=== PATIENT | female | born 1945 | race Caucasian/White ===

== ENCOUNTER 2024-07-18 12:00 | Inpatient (IN) | payer MEDICARE, BC ==
[2024-07-18 11:41] VITALS: BMI 31.1
[2024-07-18 13:35] LABS: #Basophils 0.07 10x3/uL (0.0-0.2); %Basophils 0.8 % (0.0-1.0); %Eosinophils 2.5 % (0.0-10.0); %Lymphocytes 26.7 % (21.0-51.0); %Monocytes 6.6 % (0.0-10.0); %Neutrophils 63.1 % (42.0-75.0); Hematocrit 44.7 % (36.0-47.0); Hemoglobin 14.7 g/dL (12.0-16.0); Mean Corpuscular HGB CONC 32.9 g/dL (32.0-36.0); Mean Corpuscular Hemoglobin 31.5 pg (27.0-31.0); Mean Corpuscular Volume 95.9 fL (78.0-98.0); Mean Platelet Volume 10.8 fL (7.4-10.4); Platelet Count 245 10x3/uL (130-400); RBC Distribution Width 13.6 % (11.5-14.5); Red Blood Cell (RBC) Count 4.66 mill/uL (4.20-5.40)
[2024-07-18 13:49] LABS: Anion Gap 15 mmol/L (10-20); BUN (Urea Nitrogen) 24 mg/dL (9.8-20.1); Calc. Creatinine Clearance 0 mL/min (70-130); Calcium 9.6 mg/dL (7.8-10.44); Carbon Dioxide 20 mmol/L (23-31); Chloride 109 mmol/L (98-107); Estimated GFR 48; Glucose 169 mg/dL (83-110); Potassium 4.4 mmol/L (3.5-5.1); Sodium 140 mmol/L (136-145)
[2024-07-21] MEDS ORDERED: Dexamethasone 4 mg/ml Vial ONE (06:15)
[2024-07-21] MEDS ORDERED: EPINEPHrine 1 MG/ML VIAL ONE (06:16)
[2024-07-21] MEDS ORDERED: Albumin 5% 0 ML ONE (06:16)
[2024-07-21] MEDS ORDERED: PHENYLEPHRINE-NS 100 MCG/ML 10 ML SYRINGE ONE ×3 (06:16→09:56)
[2024-07-21] MEDS ORDERED: Bupivacaine PF 0.5% 30 ML VIAL ONE (06:16)
[2024-07-21] MEDS ORDERED: fentaNYL PF 100 MCG/2 ML SYRINGE ONE ×2 (06:36→09:37)
[2024-07-21] MEDS ORDERED: PROPOFOL 20 ML ONE (06:36)
[2024-07-21] MEDS ORDERED: Midazolam HCl 2 mg/2 ml Vial ONE ×2 (06:37→09:37)
[2024-07-21] MEDS ORDERED: Lidocaine 1% PF 5 ML VIAL ONE (06:37)
[2024-07-21] MEDS ORDERED: Ondansetron PF 4 MG/2 ML Vial ONE (06:37)
[2024-07-21] MEDS ORDERED: Rocuronium Bromide 10 MG/ML (10ML VIAL) ONE ×2 (06:37→08:43)
[2024-07-21] MEDS ORDERED: Heparin 10,000 UNITS/1 ML VIAL 30,000 UNITS in Sodium Chloride 0.9% 1,000 ML FS SCH (06:45)
[2024-07-21] MEDS ORDERED: Lidocaine 1% MPF 2 ML VIAL ONE (06:50)
[2024-07-21] MEDS ORDERED: Nitroglycerin 50 MG/250 ML BOT 250 ML ONE (07:18)
[2024-07-21] MEDS ORDERED: Sodium Chloride 0.9% 100 ML ONE (07:21)
[2024-07-21] MEDS ORDERED: CEFAZOLIN 2 GM VIAL ONE (07:21)
[2024-07-21] MEDS ORDERED: Mannitol 12.5 GM/50 ML ONE (07:29)
[2024-07-21] MEDS ORDERED: Vancomycin 1 GM VIAL ONE (07:29)
[2024-07-21] MEDS ORDERED: Aminocaproic Acid 5 GM/20 ML VIAL ONE (07:29)
[2024-07-21] MEDS ORDERED: Magnesium 5 GM/10 ML VIAL ONE (07:29)
[2024-07-21] MEDS ORDERED: Papaverine 60 MG/2 ML VIAL ONE (07:29)
[2024-07-21] MEDS ORDERED: Lidocaine 2% PF 100 mg/5 ml Syringe ONE (07:29)
[2024-07-21] MEDS ORDERED: Calcium Chloride 1 GM/10 ML Abboject SYRINGE ONE (07:29)
[2024-07-21] MEDS ORDERED: Thrombin 5000 UNITS/5 ML VIAL ONE (07:29)
[2024-07-21] MEDS ORDERED: Heparin 5,000 UNITS/ML VIAL ONE (07:29)
[2024-07-21] MEDS ORDERED: Potassium Chloride 60 mEq (30 mL) VIAL ONE (07:29)
[2024-07-21] MEDS ORDERED: Cardioplegic Soln 1,000 ML BAG ONE (07:29)
[2024-07-21] MEDS ORDERED: Heparin 30,000 units/30 ml VIAL ONE (07:29)
[2024-07-21] MEDS ORDERED: Sodium Bicarb 50 mEq/50 ML VIAL ONE (07:29)
[2024-07-21] MEDS ORDERED: Esmolol 100 MG/10 ML VIAL ONE (07:48)
[2024-07-21] MEDS ORDERED: Insulin Regular 300 UNITS/3 ML VIAL ONE (09:46)
[2024-07-21] MEDS ORDERED: Protamine Sulfate 50 MG/5 ML VIAL ONE (09:52)
[2024-07-21] MEDS ORDERED: Norepinephrine 4 MG/4 ML VIAL ONE (10:26)
[2024-07-21] MEDS ORDERED: NOREPINEPHRINE 8 MG/250 ML-D5W 250 ML ONE (10:35)
[2024-07-21 11:31] LABS: Actual Bicarbonate (HCO3a) 17.7 mEq/L (22-28); Base Excess (BEa) -7.5 mEq/L (-2.0 to +3.0); Calcium, Ionized (arterial) 1.23 mmol/L (1.12-1.30); Carboxyhemoglobin (COHb) 1.1 gm% (0.0-3.0); Hematocrit-ABG 36 % (36.0-47.0); Hemoglobin (Hb) 12.4 g/dL (12.0-16.0); O2 Tension (PaO2), arterial 111.7 mmHg (> 70.0); Potassium - ABG Lab 3.83 mmol/L (3.70-5.30); pH, Arterial 7.322 (7.35-7.45)
[2024-07-21 11:32] LABS: Puncture Site ALINE
[2024-07-21] MEDS ORDERED: Bisacodyl 5 MG TAB PO PRN (11:51)
[2024-07-21] MEDS ORDERED: fentaNYL 50 mcg/mL 1 mL Vial SLOW IVP PRN ×2 (11:51)
[2024-07-21] MEDS ORDERED: Ipratropium/Albuterol 3 ML NEB NEB PRN (11:51)
[2024-07-21] MEDS ORDERED: Nitroglycerin 50 MG/250 ML BOT 250 ML IVPB PRN (11:51)
[2024-07-21] MEDS ORDERED: NOREPINEPHRINE 8 MG/250 ML-D5W 250 ML IVPB PRN (11:51)
[2024-07-21] MEDS ORDERED: Mag-Al 1200 mg/1200 mg/30 ML UDCUP PO PRN (11:51)
[2024-07-21] MEDS ORDERED: Bisacodyl 10 MG SUPP PR PRN (11:51)
[2024-07-21] MEDS ORDERED: traMADol HCl 50 MG TAB PO PRN (11:51)
[2024-07-21] MEDS ORDERED: Promethazine HCl 25 MG/ML VIAL IM PRN (11:51)
[2024-07-21] MEDS ORDERED: Morphine 2 MG/ML VIAL SLOW IVP PRN (11:51)
[2024-07-21] MEDS ORDERED: Ondansetron PF 4 MG/2 ML Vial IVP PRN (11:51)
[2024-07-21] MEDS ORDERED: Guaifenesin DM 100-10/5 ML UDCUP PO PRN (11:51)
[2024-07-21 11:57] LABS: #Basophils 0.07 10x3/uL (0.0-0.2); %Basophils 0.3 % (0.0-1.0); %Eosinophils 0.2 % (0.0-10.0); %Lymphocytes 11.7 % (21.0-51.0); %Monocytes 5.9 % (0.0-10.0); %Neutrophils 80.2 % (42.0-75.0); Hematocrit 33.3 % (36.0-47.0); Mean Corpuscular Hemoglobin 32.2 pg (27.0-31.0); Mean Corpuscular Volume 97.4 fL (78.0-98.0); Mean Platelet Volume 12.2 fL (7.4-10.4); Platelet Count 161 10x3/uL (130-400); Red Blood Cell (RBC) Count 3.42 mill/uL (4.20-5.40)
[2024-07-21 12:07] LABS: Anion Gap 15 mmol/L (10-20); BUN (Urea Nitrogen) 25 mg/dL (9.8-20.1); Calc. Creatinine Clearance 71 mL/min (70-130); Calcium 8.8 mg/dL (7.8-10.44); Carbon Dioxide 17 mmol/L (23-31); Chloride 114 mmol/L (98-107); Estimated GFR 67; Glucose 207 mg/dL (83-110); Potassium 5.2 mmol/L (3.5-5.1); Sodium 141 mmol/L (136-145)
[2024-07-21 12:23] LABS: INR-International Normal Ratio 1.4; PTT 35.6 sec (22.9-36.1); Prothrombin Time 16.7 sec (12.0-14.7)
[2024-07-21] MEDS ORDERED: Dextrose 5% in Water 1,000 ML IV PRN (12:30)
[2024-07-21] MEDS ORDERED: Glucagon 1 MG/ML KIT SC PRN (12:30)
[2024-07-21] MEDS ORDERED: Dextrose 50% Abboject 50 ML SYRINGE SLOW IVP PRN (12:30)
[2024-07-21] MEDS: Albumin 5% 12.5 GM (250 mL) BOT IVPB PRN ×2 (12:31→22:36)
[2024-07-21] MEDS: Insulin Regular, Human 100 UNIT/ML 10 ML VIAL SC PRN (12:35)
[2024-07-21] MEDS: Ketorolac Tromethamine 30 MG (1 mL) VIAL IVP SCH (12:35)
[2024-07-21] MEDS: Magnesium 2 GM/50 ML(in water) 2 GM in Premix 1 BAG IVPB SCH (12:36)
[2024-07-21] MEDS: Post-Op Insulin Drip Protocol IVPB ONE (12:36)
[2024-07-21] MEDS: Albumin 5% 500 ML ONE (12:36)
[2024-07-21] MEDS: D5 1/2 NS w/20 mEq KCL 1,000 ML IV SCH (12:36)
[2024-07-21] MEDS: INSULIN REGULAR IN 0.9 % NACL 100 UNITS in Premix 1 BAG IVPB SCH (14:34)
[2024-07-21] MEDS: CEFAZOLIN 2 GM in Sodium Chloride 0.9% 100 ML IVPB SCH (15:42)
[2024-07-21] MEDS: Sodium Chloride 0.9% 1,000 ML IV SCH (16:01)
[2024-07-21 16:57] LABS: Hematocrit 36.9 % (36.0-47.0); Hemoglobin 12.2 g/dL (12.0-16.0)
[2024-07-21 17:54] LABS: Potassium 3.9 mmol/L (3.5-5.1)
[2024-07-21] MEDS: Potassium Chloride 20 MEQ (100 mL) BAG IVPB PRN (20:12)
[2024-07-21] MEDS: Famotidine/PF 20 mg/2ml Vial SLOW IVP SCH (20:12)
[2024-07-21] MEDS: Atorvastatin Calcium 20 MG TAB PO SCH (22:08)
[2024-07-22 04:20] LABS: #Basophils Less than 0.03 10x3/uL (0.0-0.2); #Eosinphils Less than 0.03 10x3/uL (0.0-0.7); %Basophils 0.1 % (0.0-1.0); %Lymphocytes 7.5 % (21.0-51.0); %Neutrophils 83.9 % (42.0-75.0); Hematocrit 31.7 % (36.0-47.0); Hemoglobin 10.5 g/dL (12.0-16.0); Mean Corpuscular HGB CONC 33.1 g/dL (32.0-36.0); Mean Corpuscular Hemoglobin 32.3 pg (27.0-31.0); Mean Corpuscular Volume 97.5 fL (78.0-98.0); Mean Platelet Volume 10.7 fL (7.4-10.4); Platelet Count 157 10x3/uL (130-400); RBC Distribution Width 14.4 % (11.5-14.5); Red Blood Cell (RBC) Count 3.25 mill/uL (4.20-5.40)
[2024-07-22 04:47] LABS: Anion Gap 14 mmol/L (10-20); BUN (Urea Nitrogen) 29 mg/dL (9.8-20.1); Calc. Creatinine Clearance 60 mL/min (70-130); Calcium 8.8 mg/dL (7.8-10.44); Carbon Dioxide 18 mmol/L (23-31); Chloride 116 mmol/L (98-107); Estimated GFR 52; Glucose 132 mg/dL (83-110); Potassium 4.4 mmol/L (3.5-5.1); Sodium 144 mmol/L (136-145)
[2024-07-22] MEDS: Magnesium 2 GM/50 ML(in water) 2 GM in Premix 1 BAG IVPB SCH (08:37)
[2024-07-22] MEDS: Aspirin 325 MG TAB PO SCH (09:32)
[2024-07-22 10:08] LABS: Hemoglobin A1c 8.3 % (4.0-6.0)
[2024-07-22 10:11] LABS: Cardiac Risk 2.3 (Less than 4.5)
[2024-07-22] MEDS ORDERED: Insulin Glargine 30 UNITS/0.3 ML VIAL SC PRN (12:25)
[2024-07-22] MEDS: Insulin Glargine 30 UNITS/0.3 ML VIAL SC SCH (13:53)
[2024-07-22] MEDS: Acetaminophen 325 MG TAB PO PRN (13:59)
[2024-07-23 05:09] LABS: Anion Gap 14 mmol/L (10-20); BUN (Urea Nitrogen) 28 mg/dL (9.8-20.1); Calc. Creatinine Clearance 78 mL/min (70-130); Carbon Dioxide 20 mmol/L (23-31); Chloride 116 mmol/L (98-107); Estimated GFR 73; Glucose 153 mg/dL (83-110); Potassium 3.8 mmol/L (3.5-5.1); Sodium 146 mmol/L (136-145)
[2024-07-23 05:10] LABS: #Basophils Less than 0.03 10x3/uL (0.0-0.2); #Eosinphils Less than 0.03 10x3/uL (0.0-0.7); %Basophils 0.1 % (0.0-1.0); %Lymphocytes 9.8 % (21.0-51.0); %Monocytes 9.8 % (0.0-10.0); %Neutrophils 79.8 % (42.0-75.0); Hematocrit 32.6 % (36.0-47.0); Hemoglobin 10.5 g/dL (12.0-16.0); Mean Corpuscular HGB CONC 32.2 g/dL (32.0-36.0); Mean Corpuscular Hemoglobin 31.6 pg (27.0-31.0); Mean Corpuscular Volume 98.2 fL (78.0-98.0); Mean Platelet Volume 11.1 fL (7.4-10.4); Platelet Count 153 10x3/uL (130-400); RBC Distribution Width 14.8 % (11.5-14.5); Red Blood Cell (RBC) Count 3.32 mill/uL (4.20-5.40)
[2024-07-23] MEDS: hydrALAZINE 20 MG/ML VIAL SLOW IVP PRN ×2 (05:30→18:25)
[2024-07-23] MEDS: Furosemide 40 MG (4 mL) VIAL SLOW IVP SCH (09:20)
[2024-07-23] MEDS: Potassium Chloride 10 MEQ in Premix 1 BAG IVPB SCH (10:43)
[2024-07-24 05:18] LABS: #Basophils Less than 0.03 10x3/uL (0.0-0.2); #Eosinphils Less than 0.03 10x3/uL (0.0-0.7); %Basophils 0.1 % (0.0-1.0); %Lymphocytes 8.9 % (21.0-51.0); %Neutrophils 83.5 % (42.0-75.0); Hematocrit 34.3 % (36.0-47.0); Hemoglobin 11.4 g/dL (12.0-16.0); Mean Corpuscular HGB CONC 33.2 g/dL (32.0-36.0); Mean Corpuscular Hemoglobin 32.3 pg (27.0-31.0); Mean Corpuscular Volume 97.2 fL (78.0-98.0); Mean Platelet Volume 11.1 fL (7.4-10.4); Platelet Count 176 10x3/uL (130-400); RBC Distribution Width 14.8 % (11.5-14.5); Red Blood Cell (RBC) Count 3.53 mill/uL (4.20-5.40)
[2024-07-24 05:45] LABS: Anion Gap 17 mmol/L (10-20); BUN (Urea Nitrogen) 32 mg/dL (9.8-20.1); Calc. Creatinine Clearance 74 mL/min (70-130); Calcium 9.2 mg/dL (7.8-10.44); Carbon Dioxide 21 mmol/L (23-31); Chloride 115 mmol/L (98-107); Estimated GFR 69; Glucose 191 mg/dL (83-110); Potassium 3.3 mmol/L (3.5-5.1); Sodium 150 mmol/L (136-145)
[2024-07-24] MEDS: Pantoprazole 40 MG VIAL IVP SCH ×2 (09:19→21:47)
[2024-07-24 13:09] LABS: Hematocrit 37.9 % (36.0-47.0); Hemoglobin 12.1 g/dL (12.0-16.0)
[2024-07-24] MEDS ORDERED: Amiodarone 450 MG in Dextrose 5% in Water 250 ML IVPB SCH (20:30)
[2024-07-24] MEDS: Amiodarone 150 MG, Admixture Fee 1 EACH in Dextrose 5% in Water 100 ML IVPB SCH (20:49)
[2024-07-24] MEDS: Amiodarone 450 MG, Admixture Fee 1 EACH in Dextrose 5% in Water 250 ML IVPB SCH (20:50)
[2024-07-24 21:05] LABS: ALT (SGPT) 17 U/L (8-55); AST (SGOT) 24 U/L (5-34); Albumin 2.9 g/dL (3.4-4.8); Alkaline Phosphatase 65 U/L (40-110); Anion Gap 17 mmol/L (10-20); BUN (Urea Nitrogen) 40 mg/dL (9.8-20.1); Bilirubin, Total 1.3 mg/dL (0.2-1.2); Calc. Creatinine Clearance 59 mL/min (70-130); Calcium 9.3 mg/dL (7.8-10.44); Carbon Dioxide 27 mmol/L (23-31); Chloride 115 mmol/L (98-107); Estimated GFR 57; Globulin 3.3 g/dL (2.4-3.5); Glucose 195 mg/dL (83-110); Magnesium 1.8 mg/dL (1.6-2.6); Protein, Total 6.2 g/dL (5.8-8.1); Sodium 156 mmol/L (136-145)
[2024-07-24] MEDS: Magnesium 2 GM/50 ML(in water) 2 GM in Premix 1 BAG IVPB SCH (21:40)
[2024-07-24] MEDS ORDERED: Potassium Chloride 20 MEQ in Premix 1 BAG IVPB SCH (21:45)
[2024-07-25] MEDS: Sodium Chloride 0.45% 1,000 ML IV SCH (00:30)
[2024-07-25 04:27] LABS: #Basophils Less than 0.03 10x3/uL (0.0-0.2); #Eosinphils Less than 0.03 10x3/uL (0.0-0.7); %Basophils 0.1 % (0.0-1.0); %Eosinophils 0.1 % (0.0-10.0); %Lymphocytes 9.1 % (21.0-51.0); %Monocytes 8.5 % (0.0-10.0); %Neutrophils 81.8 % (42.0-75.0); Hematocrit 37.5 % (36.0-47.0); Hemoglobin 12.2 g/dL (12.0-16.0); Mean Corpuscular HGB CONC 32.5 g/dL (32.0-36.0); Mean Corpuscular Hemoglobin 31.5 pg (27.0-31.0); Mean Corpuscular Volume 96.9 fL (78.0-98.0); Platelet Count 199 10x3/uL (130-400); RBC Distribution Width 14.7 % (11.5-14.5); Red Blood Cell (RBC) Count 3.87 mill/uL (4.20-5.40)
[2024-07-25 04:54] LABS: Anion Gap 19 mmol/L (10-20); BUN (Urea Nitrogen) 42 mg/dL (9.8-20.1); Calc. Creatinine Clearance 66 mL/min (70-130); Carbon Dioxide 21 mmol/L (23-31); Chloride 115 mmol/L (98-107); Estimated GFR 64; Glucose 289 mg/dL (83-110); Potassium 3.5 mmol/L (3.5-5.1); Sodium 151 mmol/L (136-145)
[2024-07-25 11:14] LABS: Actual Bicarbonate (HCO3v) 26.1 mEq/L (22-28); Chloride (VBG) 110 mmol/L (98-106); Hematocrit-VBG 39 % (36.0-47.0); Hemoglobin (Hb) 13.1 g/dL (11.7-16.1); Potassium (VBG) 3.48 mmol/L (3.70-5.30); pH (venous) 7.442 (7.32-7.43)
[2024-07-25 11:16] LABS: Sodium 152 mmol/L (133-146)
[2024-07-26 06:12] LABS: #Basophils Less than 0.03 10x3/uL (0.0-0.2); %Basophils 0.1 % (0.0-1.0); %Eosinophils 1.4 % (0.0-10.0); %Lymphocytes 7.8 % (21.0-51.0); %Neutrophils 81.3 % (42.0-75.0); Hematocrit 39.7 % (36.0-47.0); Hemoglobin 12.6 g/dL (12.0-16.0); Mean Corpuscular HGB CONC 31.7 g/dL (32.0-36.0); Mean Corpuscular Hemoglobin 31.5 pg (27.0-31.0); Mean Corpuscular Volume 99.3 fL (78.0-98.0); Mean Platelet Volume 10.4 fL (7.4-10.4); Platelet Count 196 10x3/uL (130-400); RBC Distribution Width 14.4 % (11.5-14.5)
[2024-07-26 06:30] LABS: Anion Gap 14 mmol/L (10-20); BUN (Urea Nitrogen) 44 mg/dL (9.8-20.1); Calc. Creatinine Clearance 62 mL/min (70-130); Carbon Dioxide 29 mmol/L (23-31); Chloride 113 mmol/L (98-107); Estimated GFR 60; Glucose 316 mg/dL (83-110); Potassium 3.3 mmol/L (3.5-5.1); Sodium 153 mmol/L (136-145)
[2024-07-26] MEDS: Insulin Glargine 30 UNITS/0.3 ML VIAL SC SCH (20:27)
[2024-07-27 09:45] LABS: #Basophils Less than 0.03 10x3/uL (0.0-0.2); %Basophils 0.1 % (0.0-1.0); %Eosinophils 1.5 % (0.0-10.0); %Lymphocytes 7.5 % (21.0-51.0); %Monocytes 9.5 % (0.0-10.0); %Neutrophils 80.5 % (42.0-75.0); Hematocrit 40.1 % (36.0-47.0); Hemoglobin 12.6 g/dL (12.0-16.0); Mean Corpuscular HGB CONC 31.4 g/dL (32.0-36.0); Mean Corpuscular Hemoglobin 32.1 pg (27.0-31.0); Mean Corpuscular Volume 102.3 fL (78.0-98.0); Mean Platelet Volume 11.2 fL (7.4-10.4); Platelet Count 167 10x3/uL (130-400); RBC Distribution Width 14.3 % (11.5-14.5); Red Blood Cell (RBC) Count 3.92 mill/uL (4.20-5.40)
[2024-07-27] MEDS: Furosemide 40 MG (4 mL) VIAL SLOW IVP SCH (10:07)
[2024-07-27] MEDS: Dextrose 5% in Water 1,000 ML IV SCH (10:08)
[2024-07-27 10:10] LABS: Anion Gap 13 mmol/L (10-20); BUN (Urea Nitrogen) 32 mg/dL (9.8-20.1); Calc. Creatinine Clearance 79 mL/min (70-130); Calcium 8.7 mg/dL (7.8-10.44); Carbon Dioxide 28 mmol/L (23-31); Chloride 112 mmol/L (98-107); Estimated GFR 76; Glucose 230 mg/dL (83-110); Potassium 3.2 mmol/L (3.5-5.1); Sodium 150 mmol/L (136-145)
[2024-07-27] MEDS: traMADol HCl 50 MG TAB PO PRN (11:11)
[2024-07-27] MEDS: Insulin Glargine 30 UNITS/0.3 ML VIAL SC SCH (20:55)
[2024-07-28 10:32] LABS: Actual Bicarbonate (HCO3a) 19.2 mEq/L (22-28); Analyzer IN Cardio OR; Base Excess (BEa) -6.3 mEq/L (-2.0 to +3.0); Calcium, Ionized (arterial) 1.19 mmol/L (1.12-1.30); Carboxyhemoglobin (COHb) 0.9 gm% (0.0-3.0); Hematocrit-ABG 40 % (36.0-47.0); Hemoglobin (Hb) 13.6 g/dL (12.0-16.0); O2 Tension (PaO2), arterial 471.9 mmHg (> 70.0); Potassium - ABG Lab 4.43 mmol/L (3.70-5.30); pH, Arterial 7.321 (7.35-7.45)
[2024-07-28 10:32] LABS: Actual Bicarbonate (HCO3a) 20.9 mEq/L (22-28); Analyzer IN Cardio OR; Base Excess (BEa) -5.3 mEq/L (-2.0 to +3.0); CO2 Tension 43.7 mmHg (35.0-45.0); Calcium, Ionized (arterial) 1.06 mmol/L (1.12-1.30); Carboxyhemoglobin (COHb) 0.4 gm% (0.0-3.0); Hematocrit-ABG 30 % (36.0-47.0); Hemoglobin (Hb) 10.2 g/dL (12.0-16.0); O2 Tension (PaO2), arterial 507.6 mmHg (> 70.0); Potassium - ABG Lab 5.05 mmol/L (3.70-5.30); pH, Arterial 7.297 (7.35-7.45)
[2024-07-28 10:32] LABS: Actual Bicarbonate (HCO3a) 22.6 mEq/L (22-28); Analyzer IN Cardio OR; Base Excess (BEa) -4.1 mEq/L (-2.0 to +3.0); CO2 Tension 48.9 mmHg (35.0-45.0); Calcium, Ionized (arterial) 1.06 mmol/L (1.12-1.30); Carboxyhemoglobin (COHb) 0.3 gm% (0.0-3.0); Hematocrit-ABG 31 % (36.0-47.0); Hemoglobin (Hb) 10.4 g/dL (12.0-16.0); pH, Arterial 7.283 (7.35-7.45)
[2024-07-28 10:32] LABS: Actual Bicarbonate (HCO3a) 19.6 mEq/L (22-28); Analyzer IN Cardio OR; Base Excess (BEa) -5.7 mEq/L (-2.0 to +3.0); CO2 Tension 37.6 mmHg (35.0-45.0); Calcium, Ionized (arterial) 1.23 mmol/L (1.12-1.30); Carboxyhemoglobin (COHb) 0.9 gm% (0.0-3.0); Hematocrit-ABG 42 % (36.0-47.0); Hemoglobin (Hb) 14.2 g/dL (12.0-16.0); O2 Tension (PaO2), arterial 470.2 mmHg (> 70.0); pH, Arterial 7.334 (7.35-7.45)
[2024-07-28 10:33] LABS: Actual Bicarbonate (HCO3a) 19.3 mEq/L (22-28); Analyzer IN Cardio OR; Base Excess (BEa) -5.1 mEq/L (-2.0 to +3.0); CO2 Tension 33.4 mmHg (35.0-45.0); Calcium, Ionized (arterial) 1.47 mmol/L (1.12-1.30); Hematocrit-ABG 31 % (36.0-47.0); Hemoglobin (Hb) 10.7 g/dL (12.0-16.0); O2 Tension (PaO2), arterial 361.4 mmHg (> 70.0); Potassium - ABG Lab 4.04 mmol/L (3.70-5.30); pH, Arterial 7.379 (7.35-7.45)
[2024-07-28 10:33] LABS: Puncture Site Arterial Line
[2024-07-28 10:40] LABS: Puncture Site Arterial Line
[2024-07-28 10:41] LABS: Puncture Site Arterial Line
[2024-07-28 14:28] VITALS: BMI 31.5
[2024-07-28 16:30] LABS: Anion Gap 17 mmol/L (10-20); BUN (Urea Nitrogen) 36 mg/dL (9.8-20.1); Calc. Creatinine Clearance 58 mL/min (70-130); Calcium 8.7 mg/dL (7.8-10.44); Carbon Dioxide 28 mmol/L (23-31); Chloride 100 mmol/L (98-107); Estimated GFR 51; Glucose 342 mg/dL (83-110); Sodium 141 mmol/L (136-145)
[2024-07-28 16:39] LABS: Hematocrit 38.5 % (36.0-47.0); Hemoglobin 12.5 g/dL (12.0-16.0); Mean Corpuscular HGB CONC 32.5 g/dL (32.0-36.0); Mean Corpuscular Hemoglobin 31.2 pg (27.0-31.0); Mean Platelet Volume 11.3 fL (7.4-10.4); Platelet Count 174 10x3/uL (130-400); RBC Distribution Width 13.9 % (11.5-14.5); Red Blood Cell (RBC) Count 4.01 mill/uL (4.20-5.40)
[2024-07-28 17:39] LABS: Band 37 % (5-11); Lymphocytes 3 % (21-51); Metamyelocyte 3 % (0-0); Monocytes 5 % (0-10); Neutrophil 51 % (42-75); Platelet Adequacy Comment Platelets Normal; Polychromasia SLIGHT = 2-3 cells HPF (0-2); Reactive Lymphocytes 1 % (0-10); Reflex for Review?? YES
[2024-07-29] MEDS: Albumin 25% 25 GM (100 mL) BOT IVPB SCH (05:12)
[2024-07-29 07:23] LABS: Hematocrit 32.4 % (36.0-47.0); Hemoglobin 10.6 g/dL (12.0-16.0); Mean Corpuscular HGB CONC 32.7 g/dL (32.0-36.0); Mean Corpuscular Hemoglobin 31.8 pg (27.0-31.0); Mean Corpuscular Volume 97.3 fL (78.0-98.0); Mean Platelet Volume 11.3 fL (7.4-10.4); Platelet Count 153 10x3/uL (130-400); RBC Distribution Width 13.7 % (11.5-14.5); Red Blood Cell (RBC) Count 3.33 mill/uL (4.20-5.40)
[2024-07-29 08:14] LABS: Band 36 % (5-11); Large Platelets 0.9 % (0-5); Lymphocytes 11 % (21-51); Metamyelocyte 2 % (0-0); Monocytes 5 % (0-10); Neutrophil 46 % (42-75); Platelet Adequacy Comment Platelets Normal; Polychromasia SLIGHT = 2-3 cells HPF (0-2)
[2024-07-29 08:15] LABS: Anion Gap 19 mmol/L (10-20); BUN (Urea Nitrogen) 49 mg/dL (9.8-20.1); Calc. Creatinine Clearance 39 mL/min (70-130); Calcium 8.5 mg/dL (7.8-10.44); Carbon Dioxide 24 mmol/L (23-31); Chloride 98 mmol/L (98-107); Estimated GFR 31; Glucose 346 mg/dL (83-110); Potassium 3.6 mmol/L (3.5-5.1); Sodium 137 mmol/L (136-145)
[2024-07-29 12:15] VITALS: BP 93/60
[2024-07-29 12:34] LABS: Puncture Site ART LINE
[2024-07-29 12:35] LABS: Puncture Site Arterial Line
[2024-07-29 16:19] VITALS: TEMP 97.8
== END 2024-07-29 16:28 | disposition hospice, inpatient (51) | DRG 235 ==
LOC: SURG A 07-21 05:59 → CCU 07-21 10:56 → IMCU/EMU 07-26 00:11
PROVIDERS: ADMIT Thoracic Surgery (Cardiothoracic Vascular Surgery); ATTEND Thoracic Surgery (Cardiothoracic Vascular Surgery)
PROC: 02100Z9 Bypass Coronary Artery, One Artery from Left Internal Mammary, Open Approach (ICD-10-PCS; principal; 2024-07-21)
PROC: 021109W Bypass Coronary Artery, Two Arteries from Aorta with Autologous Venous Tissue, Open Approach (ICD-10-PCS; 2024-07-21)
PROC: 06BQ4ZZ Excision of Left Saphenous Vein, Percutaneous Endoscopic Approach (ICD-10-PCS; 2024-07-21)
PROC: 5A1221Z Performance of Cardiac Output, Continuous (ICD-10-PCS; 2024-07-21)
PROC: 02L70CK Occlusion of Left Atrial Appendage with Extraluminal Device, Open Approach (ICD-10-PCS; 2024-07-21)
PROC: 3E033XZ Introduction of Vasopressor into Peripheral Vein, Percutaneous Approach (ICD-10-PCS; 2024-07-21)
PROC: 30233J1 Transfusion of Nonautologous Serum Albumin into Peripheral Vein, Percutaneous Approach (ICD-10-PCS; 2024-07-21)
PROC: 3E03329 Introduction of Other Anti-infective into Peripheral Vein, Percutaneous Approach (ICD-10-PCS; 2024-07-21)
PROC: 4A00X4Z Measurement of Central Nervous Electrical Activity, External Approach (ICD-10-PCS; 2024-07-25)
DX: I25.10 Atherosclerotic heart disease of native coronary artery without angina pectoris (principal); G93.41 Metabolic encephalopathy; I63.512 Cerebral infarction due to unspecified occlusion or stenosis of left middle cerebral artery; J96.01 Acute respiratory failure with hypoxia; E87.0 Hyperosmolality and hypernatremia; K92.2 Gastrointestinal hemorrhage, unspecified; Z51.5 Encounter for palliative care; Z66 Do not resuscitate; I48.91 Unspecified atrial fibrillation; E87.6 Hypokalemia; I10 Essential (primary) hypertension; E78.5 Hyperlipidemia, unspecified; E11.65 Type 2 diabetes mellitus with hyperglycemia; E66.9 Obesity, unspecified; Z79.899 Other long term (current) drug therapy; Z98.890 Other specified postprocedural states; Z68.32 Body mass index [BMI] 32.0-32.9, adult; Z88.7 Allergy status to serum and vaccine; Z79.84 Long term (current) use of oral hypoglycemic drugs; Z79.82 Long term (current) use of aspirin
CPT/HCPCS: 36415; 36416; 36430; 70450; 71045; 71046; 80048; 80061; 82805; 83036; 83735; 84443; 85025; 85060; 85610; 85730; 86850; 86900; 86901; 93005; 93010; 93306; 93880; 94002; 94003; 94150; 95700; 95711; 95819; A4311; A4648; C1751; C1889; J0171; J0282; J0360; J0665; J1100; J1642; J1644; J1815; J1885; J1940; J2001; J2150; J2250; J2405; J2440; J2470; J2704; J2720; J3370; J3475; J3480; J3490; J7030; J7070; P9045; P9047; S0017